=== PATIENT | male | born 1975 | race Caucasian/White ===

== ENCOUNTER 2017-01-03 07:51 | Emergency (ER) | payer BC ==
--- NOTE | 2017-01-03 08:51 | C.PDOC ---
History Of Present Illness 41 year old patient presents to the ED complaining of right shoulder pain for about a week. Patient states the pain began after he was installing a toilet last week. He does a lot of heavy lifting at work. He took Tylenol and Aspirin with some relief. He also used icy-hot to alleviate the pain. He notes there was some swelling during the week, but not today. Patient denies fever, chest pain, shortness of breath, numbness, weakness, neck pain, or back pain. (Becky Christine) History Per: Patient History/Exam Limitations: no limitations Onset/Duration Of Symptoms: Other (about a week) Current Symptoms Are (Timing): Still Present Quality: "Pain" Severity: Mild Pain Scale Rating Of: 3 Exacerbating Factor(s): Strenuous Use Of Affected Area Recent travel outside of the [place]: No Time Seen by Provider: 01/03/17 08:18 Chief Complaint (Nursing): Upper Extremity Problem/Injury Past Medical History Reviewed: Historical Data, Nursing Documentation, Vital Signs - Medical History PMH: HTN Family History: States: Unknown Family Hx - Social History Hx Alcohol Use: No Hx Substance Use: No - Immunization History Hx Influenza Vaccination: Yes Vital Signs: Last Vital Signs Temp 98.4 F 01/03/17 09:09 Pulse 92 H 01/03/17 09:09 Resp 16 01/03/17 09:09 BP 156/100 H 01/03/17 09:09 Pulse Ox 99 01/03/17 10:16 Review Of Systems Except As Marked, All Systems Reviewed And Found Negative. Constitutional: Negative for: Fever Cardiovascular: Negative for: Chest Pain Respiratory: Negative for: Shortness of Breath Musculoskeletal: Positive for: Shoulder Pain (right). Negative for: Neck Pain, Back Pain Neurological: Negative for: Weakness, Numbness Physical Exam - Physical Exam Appears: Non-toxic, No Acute Distress Skin: Warm, Dry Head: Atraumatic, Normacephalic Neck: Normal ROM, Supple Chest: Symmetrical Cardiovascular: Rhythm Regular Respiratory: Normal Breath Sounds, No Rales, No Rhonchi, No Wheezing Back: Normal Inspection Extremity: No Tenderness, Capillary Refill (<2 seconds), No Deformity, No Swelling, Other (right shoulder: painful ROM; normal strength; normal pulse) Neurological/Psych: Oriented x3, Normal Motor, Normal Sensation Gait: Steady ED Course And Treatment O2 Sat by Pulse Oximetry: 99 (room air) Pulse Ox Interpretation: Normal - Other Rad right shoulder X-Ray: Viewed By Me Interpretation: No fracture or dislocation Medical Decision Making Medical Decision Making: Impression: 41 y/o male with right shoulder pain Plan: * Toradol * Right shoulder x-ray * Reassess and disposition Progress: Xray reviewed no fracture or dislocation Arm sling applied. Patient advised to take analgesics and follow up with ortho ( Becky Christine) Disposition Counseled Patient/Family Regarding: Diagnosis, Need For Followup, Rx Given - Disposition Disposition Time: 08:51 - POA Present On Arrival: None - Disposition Referrals: Javier Myles III, MD [Staff Provider] - Disposition: HOME/ ROUTINE Condition: STABLE Additional Instructions: Your prescription was sent to [facility] pharmacy Xray reviewed showing no acute fracture or dislocation. Advise to rest, ice and elevate joint. Take pain medication as needed, ibuprofen 600mg every 8 hours with food to not upset stomach. If pain persists, follow up with orthopedic in one week. 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 - Scribe Statement The provider has reviewed the documentation as recorded by the Scribe - Scribe Statement Katherine Land All medical record entries made by the Scribe were at my direction and personally dictated by me. I have reviewed the chart and agree that the record accurately reflects my personal performance of the history, physical exam, medical decision making, and the department course for this patient. I have also personally directed, reviewed, and agree with the discharge instructions and disposition. (Becky Christine)
[2017-01-03 09:14] VITALS: BP 156/100; PULSE 92; RESP 16; TEMP 98.4
[2017-01-03 10:06] VITALS: O2SAT 99
--- NOTE | 2017-01-03 12:19 | RAD ---
PROCEDURE: Radiographs of the Right Shoulder HISTORY: pain s.p lifting injury COMPARISON: No prior. FINDINGS: BONES: Normal. No fracture. JOINTS: Normal. Glenohumeral and acromioclavicular joints preserved. No osteoarthritis. SOFT TISSUES: Normal. OTHER FINDINGS: None. IMPRESSION: No acute findings related to/accounting for the clinical presentation. Concordant results with the preliminary interpretation rendered by the emergency department physician procedure.
== END 2017-01-03 09:14 | disposition home or self-care (01) ==
LOC: C.ER 07:51
DX: M25.511 Pain in right shoulder (principal)
CPT/HCPCS: 73030; 96372; 99284; J1885